=== PATIENT | male | born 1995 | race African-American/Black ===

== ENCOUNTER 2020-06-15 10:53 | Emergency (ER) | payer SELFPAY ==
[~2020-06-15] VITALS: Ht 175.3 cm; Wt 81.0 kg
[2020-06-15 11:05] VITALS: BP_SYST 84
[2020-06-15] MEDS ORDERED: ACETAMINOPHEN 500 MG TABLET PO ONE (12:30)
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
--- NOTE | 2020-06-15 13:19 | RAD ---
PA and lateral chest. HISTORY: Chest pain PA and lateral views were taken of the chest. Lungs are clear. Heart is normal in size. There is no pleural effusion. IMPRESSION: 1. No acute chest disease. Electronically signed by: Yvan Morel MD (06/15/2020 1:17 PM) [facility]
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
[2020-06-15] MEDS ORDERED: ASPIRIN CHEWABLE 81 MG TABLET. PO ONE (16:30)
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
== END 2020-06-15 17:10 | disposition home or self-care (01) ==
LOC: ER 10:53
DX: M54.2 Cervicalgia (principal); R07.89 Other chest pain; R51.9 Headache, unspecified; G89.11 Acute pain due to trauma; F17.200 Nicotine dependence, unspecified, uncomplicated; Y08.89XA Assault by other specified means, initial encounter; Y93.89 Activity, other specified; Y92.89 Other specified places as the place of occurrence of the external cause; Y99.8 Other external cause status
CPT/HCPCS: 70450; 71046; 72125; 72141; 99285-25

== ENCOUNTER 2020-11-30 12:48 | Emergency (ER) | payer SELFPAY ==
[~2020-11-30] VITALS: Ht 175.3 cm; Wt 81.0 kg
[2020-11-30 13:02] VITALS: BP 144/89
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
== END 2020-11-30 13:25 | disposition home or self-care (01) ==
LOC: ER 12:48
DX: S01.01XD Laceration without foreign body of scalp, subsequent encounter (principal); X58.XXXD Exposure to other specified factors, subsequent encounter
CPT/HCPCS: 99282; 99283

== ENCOUNTER 2021-05-26 05:41 | Emergency (ER) | payer OTHER ==
[~2021-05-26] VITALS: Ht 177.8 cm; Wt 81.8 kg
[2021-05-26 05:45] VITALS: BP 152/101
[2021-05-26] MEDS ORDERED: AMOX1TAB61 PO (06:06)
[2021-05-26] MEDS ORDERED: PRED20TA PO (06:06)
[2021-05-26] MEDS ORDERED: CHLO15MO2 PO (06:06)
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
[2021-05-26] MEDS ORDERED: AMOXICILLIN/K CLAV 875/125MG TABLET. PO ONE (06:15)
[2021-05-26] MEDS ORDERED: DEXAMETHASONE 4 MG TABLET PO ONE (06:15)
[2021-05-26] MEDS ORDERED: LIDOCAINE 2%/EPI 1:100,000 20 ML VIAL. INJ ONE (06:15)
== END 2021-05-26 06:20 | disposition home or self-care (01) ==
LOC: ER 05:41
DX: K08.89 Other specified disorders of teeth and supporting structures (principal); K02.9 Dental caries, unspecified; F20.9 Schizophrenia, unspecified; F17.200 Nicotine dependence, unspecified, uncomplicated
CPT/HCPCS: 64450; 99284; J3490